=== PATIENT | female | born 1985 | race Caucasian/White ===

== ENCOUNTER 2021-01-14 16:36 | Emergency (ER) | payer MEDICAID ==
[~2021-01-14] VITALS: Ht 162.6 cm; Wt 50.0 kg
[2021-01-14 16:50] VITALS: BP 147/79
[2021-01-14 18:34] LABS: BILIRUBIN,URINE NEGATIVE (NEG); CLARITY,URINE CLEAR; COLOR,URINE YELLOW; NITRITE,URINE NEGATIVE (NEG); PH,URINE 6.5 (<5.0-8.0); PROTEIN,URINE NEGATIVE (NEG-TRACE); UROBILINOGEN,URINE 0.2 mg/dL (0.2 mg/dL)
[2021-01-14 18:38] LABS: BARBITURATES NEG (NEG); BENZODIAZEPINES POS (NEG); CANNABINOIDS NEG (NEG); COCAINE NEG (NEG); METHADONE NEG (NEG); OPIATES NEG (NEG); PHENCYCLIDINE NEG (NEG)
[2021-01-14 18:42] LABS: AMPHETAMINE/METHAMPHETAMINE POS (NEG)
[2021-01-14 18:44] LABS: BACTERIA,URINE 0 /HPF (0-FEW); RBC,URINE 0 /HPF (0-2); WBC,URINE 0 /HPF (0-4)
--- NOTE | 2021-01-14 19:11 | PHYS DOC ---
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 Patient states she was shopping at the [employer]. She states she had a "moment" and she decided to urinate on herself. She states she is worried about her neighbor that moved out because they took out a lot of stuff that she felt was told that it. She states she thinks she has bugs on her. She states she is also worried about wasp sting in her children. She states her children with the dad and the same. Patient is jumping from one idea to the other. She states she wants to be given a place to take a shower because she feels dirty. Patient denies any suicidal or homicidal ideations. 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 [] Eyes: Denies change in visual acuity. [] HENT: Denies nasal congestion or sore throat. [] Respiratory: Denies cough or shortness of breath. [] Cardiovascular: Denies chest pain or edema. [] GI: Denies abdominal pain, nausea, vomiting, bloody stools or diarrhea. [] : Denies dysuria. [] Musculoskeletal: Denies back pain or joint pain. [] Integument: Denies rash. [] Neurologic: Denies headache, focal weakness or sensory changes. [] Psychiatric: Reports anxiety, flight of ideas (JUJU MONTESINOS CORN PRESS OPERATOR) Heart Score: C/O Chest Pain: N/A Risk Factors: Risk Factors: DM, Current or recent (<one month) smoker, HTN, HLP, family history of CAD, obesity. Risk Scores: Score 0 - 3: 2.5% MACE over next 6 weeks - Discharge Home Score 4 - 6: 20.3% MACE over next 6 weeks - Admit for Clinical Observation Score 7 - 10: 72.7% MACE over next 6 weeks - Early Invasive Strategies (JUJU MONTESINOS CORN PRESS OPERATOR) Allergies: Allergies: Allergies Coded Allergies Type Severity Reaction Last Updated Verified No Known Drug Allergies 01/14/21 No (JUJU MONTESINOS CORN PRESS OPERATOR) Physical Exam: PE: Constitutional: Well developed, well nourished, no acute distress, non-toxic amparo earance. [] HENT: Normocephalic, atraumatic, bilateral external ears normal, oropharynx moist, no oral exudates, nose normal. [] Eyes: PERRLA, EOMI, conjunctiva normal, no discharge. [] Neck: Normal range of motion, no tenderness, supple, no stridor. [] Cardiovascular:Heart rate regular rhythm, no murmur [] Lungs & Thorax: Bilateral breath sounds clear to auscultation [] Abdomen: Bowel sounds normal, soft, no tenderness, no masses, no pulsatile masses. [] Skin: Warm, dry, no erythema, no rash. [] Back: No tenderness, no CVA tenderness. [] Extremities: No tenderness, no cyanosis, no clubbing, ROM intact, no edema. [] Neurologic: Alert and oriented X 3, normal motor function, normal sensory function, no focal deficits noted. [] Psychologic: Anxious, flight of ideas (JUJU MONTESINOS CORN PRESS OPERATOR) Current Patient Data: Labs: Laboratory Tests Test 01/14/21 18:25 Urine Collection Type Unknown Urine Color Yellow Urine Clarity Clear Urine pH 6.5 (<5.0-8.0) Urine Specific [place] 1.010 (1.000-1.030) Urine Protein Negative mg/dL (NEG-TRACE) Urine Glucose (UA) Negative mg/dL (NEG) Urine Ketones (Stick) Negative mg/dL (NEG) Urine Blood Negative (NEG) Urine Nitrite Negative (NEG) Urine Bilirubin Negative (NEG) Urine Urobilinogen Dipstick 0.2 mg/dL (0.2 mg/dL) Urine Leukocyte Esterase Negative (NEG) Urine RBC 0 /HPF (0-2) Urine WBC 0 /HPF (0-4) Urine Squamous Epithelial Cells Few /LPF Urine Bacteria 0 /HPF (0-FEW) Urine Mucus Slight /LPF Urine Opiates Screen Neg (NEG) Urine Methadone Screen Neg (NEG) Urine Barbiturates Neg (NEG) Urine Phencyclidine Screen Neg (NEG) Urine Amphetamine/Methamphetamine Pos (NEG) Urine Benzodiazepines Screen Pos (NEG) Urine Cocaine Screen Neg (NEG) Urine Cannabinoids Screen Neg (NEG) Urine Ethyl Alcohol Neg (NEG) Vital Signs: Vital Signs Date Time Temp Pulse Resp B/P (MAP) Pulse Ox O2 Delivery O2 Flow Rate FiO2 01/14/21 16:50 98.7 111 22 147/79 97 Room Air 98.7 (JUJU MONTESINOS APRN) EKG: EKG: [] (JUJU MONTESINOS APRN) Radiology/Procedures: Radiology/Procedures: [] (JUJU MONTESINOS APRN) Course & Med Decision Making: Course & Med Decision Making Pertinent Labs and Imaging studies reviewed. (See chart for details) This is a 35-year-old female patient presenting to the ED today with a flight of ideas. See HPI. UA positive for benzodiazepines and methamphetamine which could be from the prescription drugs she is taking. UA negative for infection. Mirela from the pat team came to talk to patient. Patient is not suicidal homicidal. Mirela stated patient can be discharged home. Patient appears more calm after talking to several. She was given a place to take a shower. She was later discharged. She has resources for following up. (JUJU MONTESINOS APRN) Dragon Disclaimer: Dragon Disclaimer: This electronic medical record was generated, in whole or in part, using a voice recognition dictation system. (JUJU MONTESINOS APRN) Departure Departure Impression: Primary Impression: Manic behavior Disposition: 01 HOME / SELF CARE / HOMELESS Condition: STABLE Referrals: UNKNOWN PCP NAME (PCP) follow up with your psychiatrist and primary care doctor next week Patient Instructions: Manic Depressive Illness Additional Instructions: You were evaluated in the emergency room. Please follow-up with your primary care doctor and psychiatrist next week. Come back to the ED at any point symptoms worsen Attending Signature Attending Signature I have reviewed the PA/LINUX SUPPORT ENGINEER's note and plan of care. I was available for consultation as needed during the patient's visit in the emergency department. I agree with the clinical impression, plan, and disposition. (KEIRA FERNANDEZ DO) JUJU MONTESINOS APRN Jan 14, 2021 19:11 KEIRA FERNANDEZ DO Jan 14, 2021 19:32
== END 2021-01-14 20:22 | disposition home or self-care (01) ==
LOC: ER 16:36
DX: F30.8 Other manic episodes (principal); F41.9 Anxiety disorder, unspecified; F90.9 Attention-deficit hyperactivity disorder, unspecified type
CPT/HCPCS: 80307; 81001; 99283